=== PATIENT | female | born 1960 | race Caucasian/White ===

== ENCOUNTER 2017-12-22 13:11 | Emergency (ER) | payer MEDICAID ==
[~2017-12-22] VITALS: Ht 165.1 cm; Wt 68.2 kg
[~2017-12-22 13:11] MED LIST: AMBIEN10 MG PO; BACTRIM DS TABL1 TAB PO; GLIPIZIDE METFO PO; HYDROCODONE-APA1 TAB PO; KRILL OIL 1,001 EAC1 PO; MULTIPLE VITAMI1 TA1 PO; OCUVITE TABLET1 TA1 PO; VITAMIN C1000 MG PO; XANAX0.5 MG PO
[2017-12-22 13:41] VITALS: Ht 165.1 cm; Wt 68.2 kg
[2017-12-22] MEDS ORDERED: LISINOPRIL2.5 MG PO (13:44)
[2017-12-22 14:22] LABS: HEMATOCRIT 43.7 % (36.0-48.0); HEMOGLOBIN 15.8 g/dL (12-16); MCH 33.1 pg (26.0-34.0); MCHC 36.2 g/dL (31.0-37.0); MCV 91.6 fL (80.0-100.0); MEAN PLATELET VOLUME 9.3 fL (7.4-10.4); PLATELET COUNT 310 10x3/uL (130-400); RBC 4.77 10x6/uL (4.00-5.40); WBC 20.2 10x3/uL (4.8-10.8)
[2017-12-22 14:26] LABS: ALBUMIN 4.2 g/dL (3.4-5.0); ALKALINE PHOSPHATASE 75 U/L (46-116); ALT (SGPT) 24 U/L (10-68); BILIRUBIN - TOTAL 0.45 mg/dL (0.2-1.3); CALC OSMOLALITY 283 mosm/kg (275-300); CALCIUM 9.6 mg/dL (8.5-10.1); CARBON DIOXIDE 26.9 mmol/L (21.0-32.0); CHLORIDE - SERUM 99 mmol/L (98-107); CREATININE - SERUM 0.8 mg/dL (0.6-1.3); GLUCOSE 213 mg/dL (74-106); POTASSIUM - SERUM 3.9 mmol/L (3.5-5.1); PROTEIN - SERUM 8.2 g/dL (6.4-8.2); SODIUM 139 mmol/L (136-145); UREA NITROGEN 12 mg/dL (7-18); eGFR NON AFRICAN AMERICAN 78 mL/min (90-120)
[2017-12-22 14:28] LABS: INR 0.92 (0.85-1.17)
[2017-12-22 14:29] LABS: APTT 26.5 SECONDS (22.8-39.4)
[2017-12-22 14:30] LABS: D-DIMER-QUANTITATIVE 0.3 ug/mLFEU (0.20-0.54)
[2017-12-22 14:37] LABS: CKMB 0.7 U/L (0.0-3.6); CREATINE KINASE 23 UL (21-215)
[2017-12-22 15:09] LABS: TROPONIN-I < 0.017 ng/mL (0.000-0.060)
[2017-12-22 15:44] LABS: LYMPHOCYTES 18 % (15-50); MONOCYTES 2 % (2-11); NEUTROPHILS 80 % (40-80); PLATELET ESTIMATE NORMAL
[2017-12-22] MEDS ORDERED: ACETAMINOPHEN500 M1 PO (18:03)
[2017-12-22] MEDS ORDERED: IBUPROFEN800 MG PO (18:03)
[2017-12-22] MEDS ORDERED: ZPAK PO (18:03)
[2017-12-22] MEDS ORDERED: CYCLOBENZAPRINE10 MG PO (18:03)
[2017-12-22 19:10] VITALS: BP 100/60
== END 2017-12-22 18:30 | disposition home or self-care (01) ==
LOC: D.ER 13:11
PROVIDERS: Family Medicine
DX: R07.81 Pleurodynia (principal); R07.89 Other chest pain; D72.829 Elevated white blood cell count, unspecified; R06.02 Shortness of breath; E11.9 Type 2 diabetes mellitus without complications; F17.200 Nicotine dependence, unspecified, uncomplicated

== ENCOUNTER 2019-06-23 07:45 | Day surgery (SDC) | payer OTHER ==
[~2019-06-23] VITALS: Ht 165.1 cm; Wt 63.5 kg
[~2019-06-23 07:45] MED LIST changes: +ACETAMINOPHEN500 M1 PO; +CYCLOBENZAPRINE10 MG PO; +IBUPROFEN800 MG PO; +LISINOPRIL2.5 MG PO; +MOBIC7.5 MG PO; +NEURONTIN 300300 MG PO; +TUMERIC PO; +ZPAK PO
[2019-06-23 08:03] LABS: HEMATOCRIT 40.8 % (36.0-48.0); HEMOGLOBIN 14.4 g/dL (12-16); MCH 32.7 pg (26.0-34.0); MCHC 35.3 g/dL (31.0-37.0); MCV 92.7 fL (80.0-100.0); MEAN PLATELET VOLUME 8.9 fL (7.4-10.4); RBC 4.4 10x6/uL (4.00-5.40); RDW 12.3 % (11.5-14.5); WBC 11.2 10x3/uL (4.8-10.8)
[2019-06-23 08:21] LABS: CALC OSMOLALITY 288 mosm/kg (275-300); CALCIUM 9.7 mg/dL (8.5-10.1); CARBON DIOXIDE 26.4 mmol/L (21.0-32.0); CHLORIDE - SERUM 103 mmol/L (98-107); CREATININE - SERUM 0.7 mg/dL (0.6-1.3); GLUCOSE 217 mg/dL (74-106); POTASSIUM - SERUM 4.3 mmol/L (3.5-5.1); SODIUM 140 mmol/L (136-145); UREA NITROGEN 21 mg/dL (7-18); eGFR NON AFRICAN AMERICAN > 90 mL/min (90-120)
[2019-06-23 09:13] VITALS: BP 120/62; Ht 165.1 cm; Wt 63.5 kg
--- NOTE | 2019-06-23 12:58 | NUR ---
DC INSTRUCTIONS GIVEN TO PT/FAMILY. STATE UNDERSTANDING. DC'D IV CATH FULLY INTACT. PT LEFT UNIT VIA WC AT 1257
--- NOTE | 2019-06-24 09:46 | OP ---
PATIENT NAME: KINGA GONZÁLES MEDICAL RECORD: [id number] :58 [facility] ADMISSION DATE: SURGEON: SHAHIDA MOONEY MD DATE OF OPERATION: 06/23/2019 PREOPERATIVE DIAGNOSIS: Albi-gg-[id number] arthritis of the right hip. POSTOPERATIVE DIAGNOSIS: Ullc-he-piahquxd arthritis of the right hip. PROCEDURE: Right hip injection under fluoroscopy with TIVA anesthesia. SURGEON: Shahida Mooney MD ANESTHESIA: TIVA. INTRAOPERATIVE COMPLICATIONS: None. SUMMARY OF PATHOLOGIC FINDINGS: Consistent with preoperative radiographs, fluoroscopy did indeed show the patient to have [id number] OA with early symptoms warranting a trial of cortisone injection. OPERATIVE SUMMARY IN DETAIL: After obtaining the appropriate preoperative orthopedic surgery consent as well as anesthetic consultation, evaluation, and clearance, the patient was brought to the operating room and placed on the operating table in supine position. After adequate TIVA anesthesia was administered, the patient's right hip was prepped and draped in routine sterile fashion. Then under direct fluoroscopic guidance, an 18-gauge spinal needle was directed into the patient's hip capsule. A small amount of Isovue was then placed to be sure that appropriate positioning had been obtained. At this point, 40 mg of Depo-Medrol and approximately 9 cc of 0.25% Marcaine plain were injected into the patient's right hip. Fluoroscopy was again utilized. The patient was then awakened and taken to the recovery room in stable condition. All final needle and sponge counts were correct. TRANSINT:[id number] Voice Confirmation ID: [id number] DOCUMENT ID: [id number] SHAHIDA MOONEY MD at 0946 CC: [id number] DICTATION DATE: 06/24/19617 ENDODONTIC ASSISTANT: 06/24/19 0914 DEP SDC 06/23/19 [place] [id number]
== END 2019-06-23 12:57 | disposition home or self-care (01) ==
LOC: D.OPS 07:45 → D.PAN 12:30 → D.OPS 12:30
PROVIDERS: Anesthesiology; ATTEND Orthopaedic Surgery
DX: M16.11 Unilateral primary osteoarthritis, right hip (principal); E11.9 Type 2 diabetes mellitus without complications; Z79.84 Long term (current) use of oral hypoglycemic drugs

== ENCOUNTER → 2020-01-06 08:47 | Outpatient (CLI) | payer OTHER ==
[2019-06-23 09:13] VITALS: BMI 23.3
== END | disposition home or self-care (01) ==
LOC: D.CT 08:47
PROVIDERS: ATTEND Podiatrist
DX: I70.212 Atherosclerosis of native arteries of extremities with intermittent claudication, left leg (principal); L60.0 Ingrowing nail

== ENCOUNTER → 2020-09-20 14:19 | Outpatient (CLI) | payer OTHER ==
[2020-02-13 07:50] VITALS: BMI 24.0
[~2020-09-20 14:19] MED LIST changes: +TRULICITY0.75 MG/0. SC
== END | disposition home or self-care (01) ==
LOC: D.MRI 14:19
PROVIDERS: ATTEND Family Medicine
DX: M25.512 Pain in left shoulder (principal)

== ENCOUNTER → 2020-10-02 08:59 | Outpatient (CLI) | payer OTHER ==
[2020-02-13 07:50] VITALS: BMI 24.0
== END | disposition home or self-care (01) ==
LOC: D.CT 08:59
PROVIDERS: ATTEND Specialist
DX: I70.212 Atherosclerosis of native arteries of extremities with intermittent claudication, left leg (principal)